=== PATIENT | female | born 1990 | race Caucasian/White ===

== ENCOUNTER → 2017-02-23 | Outpatient (CLI) | payer BC ==
[2017-02-23 16:02] LABS: HEMATOCRIT 37.3 % (37-47); MEAN CELL VOLUME 84.8 fL (80-100); MEAN CORPUSCULAR HEMOGLOBIN 29.5 pg (25-34); MEAN CORPUSCULAR HGB CONC 34.9 g/dl (32-36); MEAN PLATELET VOLUME 9.4 fL (7.4-10.4); PLATELET COUNT 214 K/uL (130-400)
[2017-02-23 16:27] LABS: PREG INTERNAL NEGATIVE QC NEG CLEAR BACKGROUND; PREG INTERNAL POSITIVE QC POS CONTROL LINE
== END | disposition home or self-care (01) ==
LOC: C.LAB1850 15:14
PROVIDERS: ATTEND Physician Assistant
DX: N92.6 Irregular menstruation, unspecified (principal)

== ENCOUNTER → 2017-02-23 | Outpatient (CLI) | payer BC | END | disposition home or self-care (01) | LOC: C.PAPS 09:39 | PROVIDERS: ATTEND Physician Assistant | DX: Z01.419 Encounter for gynecological examination (general) (routine) without abnormal findings (principal) ==

== ENCOUNTER → 2017-02-24 | Outpatient (CLI) | payer BC ==
--- NOTE | 2017-02-24 15:56 | DIAGNOSTIC IMAGING REPORT ---
ULTRASOUND OF THE PELVIS CLINICAL HISTORY: Irregular vaginal bleeding. COMPARISON STUDY: No priors. TECHNIQUE: Real-time, grayscale, and color flow sonography of the pelvis is performed both transabdominally and endovaginally. Images are reviewed in the transverse and longitudinal planes. FINDINGS: Uterus: The uterus is normal in size and echotexture, measuring 6.3 x 2.2 x 3.2 cm. Endometrium: The endometrium is normal in appearance, and the endometrial stripe is normal in thickness measuring up to 0.2 cm. Ovaries: The ovaries are normal in size and morphology. The right ovary measures 2.3 x 1.7 x 2.2 cm and the left ovary measures 2.5 x 1.5 x 1.2 cm. Small follicles are noted. Normal Doppler waveforms are shown within both ovaries. Pelvis: There is no free fluid in the cul-de-sac. No concerning adnexal lesion is seen. IMPRESSION: Unremarkable sonographic assessment of the pelvis. Electronically signed by: Bahman Brasher M.D. 02/24/2017 3:55 PM Dictated Date/Time: 02/24/2017 3:54 PM
== END | disposition home or self-care (01) ==
LOC: C.ULTR 14:37
PROVIDERS: ATTEND Physician Assistant
DX: N92.6 Irregular menstruation, unspecified (principal)

== ENCOUNTER 2019-12-06 09:20 | Inpatient (IN) ==
[2019-12-06] MEDS ORDERED: PENICILLIN G POTASSIUM 3 MU in DEXTROSE 5% 100 ML IV PRN (09:50)
[2019-12-06] MEDS ORDERED: LACTATED RINGER'S 1,000 ML IV PRN (09:50)
[2019-12-06] MEDS ORDERED: OXYTOCIN 30 UNITS/500 ML BAG IV PRN ×2 (09:50→14:43)
[2019-12-06 10:08] LABS: Hemoglobin 11.9 g/dL (12.0-16.0); Mean Corpuscular Hemoglobin 29.2 pg (25-34); Mean Corpuscular Volume 88.5 fL (80-100); Mean Platelet Volume 9.9 fL (7.4-10.4); Platelet Count 174 K/uL (130-400); RDW Coefficient of Variation 14.4 % (11.5-14.5); Red Blood Count 4.07 M/uL (4.2-5.4); White Blood Count 12.23 K/uL (4.8-10.8)
[2019-12-06] MEDS ORDERED: PENICILLIN G POTASSIUM 6 MU in DEXTROSE 5% 250 ML IV ONE (10:15)
--- NOTE | 2019-12-06 10:24 | History & Physical Report ---
Date of Service December 06, 2019 Assessment & Plan (1) labor: Kemi is a 29 y/o female currently at 35-4/7 WGA with an DANNY 01/06/20 as determined by Ultrasound (#1; performed on 05/15/19) who is here with stepfather Rob, today for labor in setting of SROM this morning. - anticipate - GBS status unknown -- will proceed with PCN prophylaxis - after discussing with patient, amenable to receiving COVID-19 testing Type: B+ Rubella immune GBS status unknown History of Present Illness Primary Care Provider: NO PCP Kemi is a 29 y/o female currently at 35-4/7 WGA with an DANNY 01/06/20 as determined by Ultrasound (#1; performed on 05/15/19) who is here with stepfatherRob, today for labor in setting of SROM. Her was uncomplicated. Endorses contractions and fluid loss this morning, with continued and good movement. No bloody show. External FHT and external uterine monitors used; Category I tracing; +FHT variability. Had regular appointments with OB. Labs: (05/31/19) Blood type: B+ Antibody screen: neg H.9 (today) Hct: 36.0 (today) WBC: 12.23 (today) Plt: 174 (today) Rubella: immune VDRL/RPR: neg Gonorrhea: neg Chlamydia: neg HIV: neg GBS: unknown Other screens: cff-DNA: Low Risk (see scanned file 07/08/19) Allergies Allergy/AdvReac Type Severity Reaction Status Date / Time No Known Drug Allergies Allergy Verified 11/23/19 08:31 Home Medications Home Medications Medication Instructions Recorded Confirmed Type prenat.vits,lashon,vlm-bone-wnkgg 1 tab PO DAILY 05/28/19 12/06/19 History ferrous sulfate [iron] 325 mg PO DAILY 12/06/19 12/06/19 History Patient History Medical History (Updated 12/06/19 @ 10:31 by Ramon Burch MD) Encounter for anatomic survey Encounter for pre-operative examination GERD (gastroesophageal reflux disease) NO RECENT ISSUES H/O miscarriage, currently Hx of varicella Migraine Surgical History Forearm fracture RT/LEFT (HARDWARE INTACT) History of tooth extraction Hx of LASIK S/P dilation and curettage Family History (Updated 05/28/19 @ 14:12 by Chelsey Christy) Family/Other Family history of diabetes mellitus Grandmother (Paternal) Family hx of colon cancer Colorectal cancer, Onset Age: 80 Father Hypertension Grandmother Diabetes Denies family history of Ovarian cancer Breast cancer Social History (Updated 05/28/19 @ 14:13 by Chelsey Christy) Smoking Status: Never smoker Second Hand Exposure: No; Hx Alcohol Use: Yes Hx Substance Use: No Preferred Language: Greenlandic Communication Ability: Effective Info Print Press Operator Required: No Beliefs That Will Affect Care: None marital status: marital status details: Julien Sandoval (32) [phone] Current Living Situation: Spouse Current Living Situation Comment: lives with spouse, 2 dogs current occupational status: employed 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 No acute distress. Cardiac: Regular rate and rhythm, no murmurs/rubs/gallops. Respiratory: Clear to auscultation bilaterally a/p, no wheezes/rales/rhonchi. No increased work of breathing. Symmetrical chest rise. No respiratory distress. Pelvic: Dilation 3 cm; Effacement 100; Station -[address] Bills Lower Extremities: No lower extremity edema or swelling. No deep calf pain. Kell's negative bilaterally Results & Data Vital Signs (Past 12 Hours) Vital Signs Pulse BP 12/06/19 09:34 88 129/89 Code Status & VTE Plan VTE Prophylaxis Plan VTE Prophylaxis will be ordered: No Supervising Physician Co-Signing Physician Notes Resident Physician Supervision Note: I interviewed and examined the patient. Discussed with Dr. Burch and agree with findings and plan as documented in the note. Any exceptions or clarifications are listed here: Patient is a 29 yowf with iup at 35 4/7 weeks dated by first trimester us not consistent withh lmp who presents to labor and delivery with gross srom. Contractions started after. +fm. no vb. essentially uncomplicated. GBS unknown so will treat. Agreeable to COVID testing , asymptomatic. Discussed patient with Dr. Dc who is agreeable to keeping patient here for delivery. Discussed situation with patient. Discussed prom and small change of need for transfer of baby to nicu. She is agreeable to staying. Plan admit. Expectant management. pitocin if needed. efw 4-5#. epidural on demand. Fetus category one/rnst. toco--q2-4min. anticipate vaginal delivery. Documented By: Sheryl Bills MD, FACOG Resident Activity Tracking Resident Involvement: Resident Care Provided Care Provided: Adult Hospital Medicine and OB Delivery (1) labor labor trimester: third trimester
[2019-12-06 10:25] LABS: Mean Corpuscular Hgb Conc 33.1 g/dL (32-36)
[2019-12-06] MEDS ORDERED: BUTORPHANOL TARTRATE 1 MG/ML VIAL IV ONE (11:43)
[2019-12-06] MEDS ORDERED: BUTORPHANOL TARTRATE 1 MG/ML VIAL ONE (11:47)
[2019-12-06] MEDS ORDERED: ACETAMINOPHEN 325 MG TAB PO PRN (14:27)
[2019-12-06] MEDS ORDERED: OXYCODONE/ACETAMINOPHEN 5mg/325mg TAB PO PRN (14:27)
--- NOTE | 2019-12-06 14:31 | Delivery Summary ---
Vaginal Delivery Summary Date of Service December 06, 2019 Pre-operative Diagnosis: at 35 2/7 weeks pprom Post-operative Diagnosis: same Procedure: repair of right labial and first degree laceration manual extraction of the placenta EBL: 400cc Anesthesia: local infiltration of lidocaine Procedure: The patient pushed to deliver a viable female in krzysztof position. The nose and mouth were bulb suctioned on the perineum and the rest of the infant was then delivered without difficulty. The baby was vigorous. The nose and mouth were again bulb suctioned and the infant was placed in the maternal abdomen for drying and attention. Cord was clamped and cut at on the perineum immediately after as the cord was quite short. Cord blood and segment obtained. Placenta delivered by manual extraction in pieces. The uterus was reexplored after removal of the placenta and no tissue appreciated. Cervix/sulci/rectum were intact. A first degree perineal laceration and a right labial laceration was repaired in the normal standard fashion. Hemostasis obtained with dilute pitocin and fundal massage. Apgars were pending. Mother and baby doing well at the end of the delivery.
[2019-12-06] MEDS ORDERED: BENZOCAINE 20% AER SPR 82.5 GM CAN EXT PRN (14:43)
[2019-12-06] MEDS ORDERED: bisacodyL 10 MG SUPP PR PRN (14:43)
[2019-12-06] MEDS ORDERED: DIPHTHERIA/TETANUS/PERTUSSIS 0.5 ML SYR/VIAL IM ONE (14:43)
[2019-12-06] MEDS ORDERED: HYDROCORTISONE ACETATE 25 MG SUPP PR PRN (14:43)
[2019-12-06] MEDS ORDERED: CEFAZOLIN 1000MG 1,000 MG/7.5 ML SYR IV ONE (14:45)
[2019-12-06] MEDS: IBUPROFEN 600 MG TAB PO PRN ×2 (15:10→19:37)
[2019-12-06] MEDS: DOCUSATE SODIUM 100 MG CAP PO SCH (20:22)
[2019-12-07] MEDS: IBUPROFEN 600 MG TAB PO PRN ×4 (00:05→19:47)
[2019-12-07] MEDS: SUPERCREAM 0.870% 15 GM JAR EXT PRN (00:05)
[2019-12-07 06:45] LABS: Hematocrit (blood only) 29.4 % (37-47)
--- NOTE | 2019-12-07 07:23 | Obstetrical Progress Note ---
Date of Service December 07, 2019 Assessment & Plan (1) Status post vaginal delivery: Doing well. continue pp care. Day #:: 1 Subjective Ambulation: ambulating normally Voiding: no voiding problems Passing Gas:: Yes Diet Tolerance:: regular diet Lochia:: Small Feeding Type:: breast feeding Supplementing because of low blood sugars in baby. Physical Exam Constitutional WD/WN, vitals as above Gastrointestinal (Abdomen) soft, nt, nd ff/nt 2 below u Psychiatric A+Ox3, euthymic affect Results & Data ([facility]) Vital Signs (Past 12 Hours) Vital Signs Temp Pulse Resp BP Pulse Ox 12/07/19 05:30 36.6 C 91 H 17 120/75 99 12/06/19 23:55 36.6 C 92 H 16 134/81 97 12/06/19 19:32 36.7 C 101 H 18 110/73 97
[2019-12-07] MEDS: PRENATAL VITAMIN 1 TAB PO SCH (09:01)
[2019-12-07] MEDS: DOCUSATE SODIUM 100 MG CAP PO SCH ×2 (09:01→19:44)
[2019-12-07] MEDS ORDERED: bisacodyL 5 MG TABEC PO SCH (20:00)
[2019-12-08] MEDS: IBUPROFEN 600 MG TAB PO PRN ×2 (00:23→07:51)
[2019-12-08] MEDS: DOCUSATE SODIUM 100 MG CAP PO SCH (07:50)
[2019-12-08] MEDS: PRENATAL VITAMIN 1 TAB PO SCH (07:50)
[2019-12-08] MEDS: SUPERCREAM 0.870% 15 GM JAR EXT PRN (11:54)
== END 2019-12-08 12:15 | disposition home or self-care (01) | DRG 807 ==
LOC: OPB 09:20 → 4S1 09:20 → 4S2 19:15